=== PATIENT | male | born 1960 | race Caucasian/White ===

== ENCOUNTER 2017-10-02 21:03 | Inpatient (IN) | payer OTHER ==
[2017-10-02] MEDS: LABETALOL HCL 20MG INJ IV (22:46)
[2017-10-02] MEDS: OXYMETAZOLINE 0.05% 15 ML NAS SPRAY NASAL (22:51)
[2017-10-02] MEDS: SOD CHLORIDE 0.9% 500 ML IV (22:51)
[2017-10-02 23:05] LABS: ADD MAN DIFF? NO
[2017-10-02 23:09] LABS: BASOPHIL # 0.1 10^3/ul (0.0-0.1); BASOPHILS % 0.5 % (0.0-2.0); EOSINOPHILS # 0.4 10^3/ul (0.0-0.5); EOSINOPHILS % 2.9 % (0.0-7.0); HEMATOCRIT 48.4 % (42.0-52.0); HEMOGLOBIN 16.2 g/dl (14.0-18.0); LYMPHOCYTES # 3.7 10^3/ul (0.8-2.9); LYMPHOCYTES % 24.2 % (15.0-51.0); MEAN CORPUSCULAR HEMOGLOBIN 30.9 pg (29.0-33.0); MEAN CORPUSCULAR HGB CONC 33.5 g/dl (32.0-37.0); MEAN CORPUSCULAR VOLUME 92.4 fl (82.0-101.0); MEAN PLATELET VOLUME 9.3 fl (7.4-10.4); MONOCYTE # 1.1 10^3/ul (0.3-0.9); MONOCYTES % 7.2 % (0.0-11.0); NEUTROPHILS % 64.7 % (39.0-77.0); PLATELET COUNT 292 10^3/UL (140-415); RED BLOOD COUNT 5.24 10^6/ul (4.70-6.10); RED CELL DISTRIBUTION WIDTH 13.9 % (11.5-14.5)
[2017-10-02 23:09] LABS: WHITE BLOOD COUNT 15.4 10^3/ul (4.8-10.8)
[2017-10-02 23:29] LABS: INR 0.86; PROTIME 11.8 Sec (11.9-14.9); PT RATIO 0.9
[2017-10-02] MEDS: ONDANSETRON 4 MG INJ IV (23:29)
[2017-10-02 23:30] LABS: PARTIAL THROMBOPLASTIN TIME 31.2 Sec (25.0-35.0)
[2017-10-02 23:31] LABS: ANION GAP 17 (8-16); BLOOD UREA NITROGEN 24 mg/dl (7-20); CALCIUM 9.3 mg/dl (8.4-10.2); CARBON DIOXIDE 27 mmol/L (21-31); CHLORIDE 106 mmol/L (97-110); CREATININE 1.34 mg/dl (0.61-1.24); GLUCOSE 100 mg/dl (70-220); POTASSIUM 3.9 mmol/L (3.5-5.1); SODIUM 146 mmol/L (135-144)
[2017-10-02 23:42] LABS: B-TYPE NATRIURETIC PEPTIDE 725 PG/ML (0-125); TROPONIN-I 0.024 ng/ml (0.00-0.12)
[2017-10-03] MEDS ORDERED: ACETAMINOPHEN 325 MG TAB PO ×2 (00:30→01:30)
[2017-10-03] MEDS ORDERED: ONDANSETRON 4 MG INJ IV ×2 (00:30→01:30)
[2017-10-03] MEDS: SOD CHLORIDE 0.9% 1,000 ML IV (01:29)
[2017-10-03] MEDS ORDERED: NACL 0.9% 3 ML SYG IV (01:30)
[2017-10-03] MEDS ORDERED: DOCUSATE SODIUM 100 MG CAP PO (01:30)
[2017-10-03] MEDS ORDERED: BISACODYL (EC) 5 MG TAB PO (01:30)
[2017-10-03] MEDS: AMLODIPINE 5 MG TAB PO ×2 (02:41→08:38)
[2017-10-03 06:27] LABS: ADD MAN DIFF? NO
[2017-10-03 06:38] LABS: WHITE BLOOD COUNT 11.5 10^3/ul (4.8-10.8)
[2017-10-03 06:38] LABS: BASOPHIL # 0.1 10^3/ul (0.0-0.1); BASOPHILS % 0.6 % (0.0-2.0); EOSINOPHILS # 0.4 10^3/ul (0.0-0.5); EOSINOPHILS % 3.6 % (0.0-7.0); HEMATOCRIT 42.7 % (42.0-52.0); HEMOGLOBIN 14.5 g/dl (14.0-18.0); LYMPHOCYTES # 3.1 10^3/ul (0.8-2.9); LYMPHOCYTES % 26.9 % (15.0-51.0); MEAN CORPUSCULAR HEMOGLOBIN 31.5 pg (29.0-33.0); MEAN CORPUSCULAR VOLUME 92.8 fl (82.0-101.0); MEAN PLATELET VOLUME 9.4 fl (7.4-10.4); MONOCYTE # 0.9 10^3/ul (0.3-0.9); MONOCYTES % 8.1 % (0.0-11.0); NEUTROPHIL # 6.9 10^3/ul (1.6-7.5); NEUTROPHILS % 60.4 % (39.0-77.0); PLATELET COUNT 240 10^3/UL (140-415); RED CELL DISTRIBUTION WIDTH 14.2 % (11.5-14.5)
[2017-10-03 06:57] LABS: ALANINE AMINOTRANSFERASE 31 IU/L (13-69); ALBUMIN 3.4 g/dl (3.3-4.9); ALBUMIN/GLOBULIN RATIO 1.13; ALKALINE PHOSPHATASE 55 IU/L (42-121); ANION GAP 11 (8-16); ASPARTATE AMINO TRANSFERASE 30 IU/L (15-46); BILIRUBIN,INDIRECT 0.2 mg/dl (0-1.1); BILIRUBIN,TOTAL 0.2 mg/dl (0.2-1.3); BLOOD UREA NITROGEN 20 mg/dl (7-20); CALCIUM 8.7 mg/dl (8.4-10.2); CARBON DIOXIDE 27 mmol/L (21-31); CHLORIDE 109 mmol/L (97-110); CHOL/HDL RATIO 5.7 RATIO; CHOLESTEROL 220 mg/dl (100-200); CREATININE 1.08 mg/dl (0.61-1.24); GLUCOSE 102 mg/dl (70-220); HDL CHOLESTEROL 38 mg/dl (28-71); LDL CHOLESTEROL,CALCULATED 145 mg/dl; MAGNESIUM 1.9 mg/dl (1.7-2.5); POTASSIUM 3.9 mmol/L (3.5-5.1); SODIUM 143 mmol/L (135-144); TOTAL PROTEIN 6.4 g/dl (6.1-8.1); TRIGLYCERIDES 185 mg/dl (0-149)
[2017-10-03 07:00] LABS: CREATINE KINASE 116 IU/L (23-200)
[2017-10-03 07:04] LABS: CK INDEX 0.9; TROPONIN-I 0.023 ng/ml (0.00-0.12)
[2017-10-03 07:11] LABS: CK-MB 0.99 ng/ml (0.0-2.4)
[2017-10-03 07:55] LABS: HEMOGLOBIN A1C 5.6 % (0-5.9)
[2017-10-03] MEDS: ASPIRIN 81 MG TAB PO (08:38)
[2017-10-03] MEDS: LOSARTAN 50 MG TAB PO (08:38)
[2017-10-03 12:53] LABS: CREATINE KINASE 107 IU/L (23-200)
[2017-10-03 12:59] LABS: CK INDEX 0.8
[2017-10-03] MEDS ORDERED: hydrALAzine 20 MG INJ IV (13:00)
[2017-10-03 13:03] LABS: CK-MB 0.84 ng/ml (0.0-2.4); TROPONIN-I < 0.012 ng/ml (0.00-0.12)
[2017-10-03] MEDS: OXYMETAZOLINE 0.05% 15 ML NAS SPRAY NASAL (14:47)
[2017-10-03] MEDS: ATORVASTATIN 80 MG TAB PO (21:00)
[2017-10-04] MEDS: OXYMETAZOLINE 0.05% 15 ML NAS SPRAY NASAL (01:14)
[2017-10-04] MEDS: AMLODIPINE 5 MG TAB PO ×2 (02:42→09:36)
[2017-10-04] MEDS: LOSARTAN 50 MG TAB PO (09:36)
[2017-10-04] MEDS ORDERED: AMLODIPINE 10 MG TAB PO (21:00)
[2017-10-05 21:04] LABS: ALDOSTERONE 1 ng/dL
== END 2017-10-04 16:22 | disposition home or self-care (01) | DRG 151 ==
LOC: TEL 10-03 00:21 → FTE 21:03
PROC: 2Y41X5Z Packing of Nasal Region using Packing Material (ICD-10-PCS; principal; 2017-10-03)
DX: R04.0 Epistaxis (principal); N17.9 Acute kidney failure, unspecified; E87.0 Hyperosmolality and hypernatremia; I16.0 Hypertensive urgency; E03.9 Hypothyroidism, unspecified; Z86.73 Personal history of transient ischemic attack (TIA), and cerebral infarction without residual deficits; Z95.5 Presence of coronary angioplasty implant and graft; F17.210 Nicotine dependence, cigarettes, uncomplicated; E86.0 Dehydration
CPT/HCPCS: 36415; 70450; 71045; 80048; 80053; 80061; 82088; 82550; 82553; 83036; 83735; 83880; 84244; 84439; 84443; 84484; 85025; 85610; 85730; 93005; 93306; 96374; 96375; 99291-25

== ENCOUNTER 2018-10-05 12:13 | Inpatient (IN) | payer OTHER ==
[2018-10-05] MEDS: SOD CHLORIDE 0.9% 1,000 ML IV (13:33)
[2018-10-05 13:35] LABS: ADD MAN DIFF? NO
[2018-10-05 13:38] LABS: WHITE BLOOD COUNT 16.8 10^3/ul (4.8-10.8)
[2018-10-05 13:38] LABS: BASOPHIL # 0.1 10^3/ul (0.0-0.1); BASOPHILS % 0.4 % (0.0-2.0); EOSINOPHILS # 0.1 10^3/ul (0.0-0.5); EOSINOPHILS % 0.8 % (0.0-7.0); HEMATOCRIT 45.2 % (42.0-52.0); HEMOGLOBIN 15.2 g/dl (14.0-18.0); LYMPHOCYTES # 2.5 10^3/ul (0.8-2.9); LYMPHOCYTES % 14.6 % (15.0-51.0); MEAN CORPUSCULAR HEMOGLOBIN 30.2 pg (29.0-33.0); MEAN CORPUSCULAR HGB CONC 33.6 g/dl (32.0-37.0); MEAN CORPUSCULAR VOLUME 89.9 fl (82.0-101.0); MEAN PLATELET VOLUME 9.2 fl (7.4-10.4); MONOCYTE # 1.3 10^3/ul (0.3-0.9); MONOCYTES % 7.4 % (0.0-11.0); NEUTROPHIL # 12.8 10^3/ul (1.6-7.5); NEUTROPHILS % 76.1 % (39.0-77.0); PLATELET COUNT 341 10^3/UL (140-415); RED BLOOD COUNT 5.03 10^6/ul (4.70-6.10); RED CELL DISTRIBUTION WIDTH 12.9 % (11.5-14.5)
[2018-10-05 14:01] LABS: ALANINE AMINOTRANSFERASE 12 IU/L (13-69); ALBUMIN/GLOBULIN RATIO 0.95; ALKALINE PHOSPHATASE 79 IU/L (42-121); ANION GAP 10 (5-13); ASPARTATE AMINO TRANSFERASE 29 IU/L (15-46); BILIRUBIN,INDIRECT 0.6 mg/dl (0-1.1); BILIRUBIN,TOTAL 0.6 mg/dl (0.2-1.3); BLOOD UREA NITROGEN 12 mg/dl (7-20); CALCIUM 9.7 mg/dl (8.4-10.2); CARBON DIOXIDE 29 mmol/L (21-31); CHLORIDE 102 mmol/L (97-110); CREATININE 1.11 mg/dl (0.61-1.24); ETHANOL < 10.0 mg/dl (0-0); Estimated GFR > 60 mL/min (>60); GLUCOSE 119 mg/dl (70-220); POTASSIUM 3.5 mmol/L (3.5-5.1); SODIUM 141 mmol/L (135-144); TOTAL PROTEIN 8.2 g/dl (6.1-8.1)
[2018-10-05 14:03] LABS: CHOLESTEROL 197 mg/dl (100-200)
[2018-10-05 14:03] LABS: CREATINE KINASE 42 IU/L (23-200); HDL CHOLESTEROL 39 mg/dl (28-71); LDL CHOLESTEROL,CALCULATED 129 mg/dl; TRIGLYCERIDES 143 mg/dl (0-149)
[2018-10-05 14:06] LABS: INR 0.91; PROTIME 12.4 Sec (11.9-14.9)
[2018-10-05 14:07] LABS: PARTIAL THROMBOPLASTIN TIME 24.5 Sec (23.0-35.0)
[2018-10-05] MEDS: SOD CHLORIDE 0.9% 100 ML (14:15)
[2018-10-05 14:16] LABS: CK INDEX 0.5; CK-MB < 0.22 ng/ml (0.0-2.4); TROPONIN-I 0.022 ng/ml (0.000-0.120)
[2018-10-05] MEDS: IODIXANOL LOCM 100 ML BTL (14:16)
[2018-10-05] MEDS: SOD CHLORIDE 0.45% 1,000 ML IV ×2 (14:25)
[2018-10-05] MEDS ORDERED: NITROGLYCERIN (SL) 0.4 MG TAB SL (14:30)
[2018-10-05] MEDS ORDERED: HYDROCODONE/APAP (5/325) TAB PO (14:30)
[2018-10-05] MEDS ORDERED: ONDANSETRON 4 MG INJ IV (14:30)
[2018-10-05] MEDS ORDERED: NACL 0.9% 3 ML SYG IV (14:30)
[2018-10-05] MEDS ORDERED: MAGNESIUM HYDROXIDE 30ML CUP PO (14:30)
[2018-10-05] MEDS ORDERED: hydrALAzine 20 MG INJ IV (14:30)
[2018-10-05] MEDS ORDERED: DOCUSATE SODIUM 100 MG CAP PO (14:30)
[2018-10-05] MEDS ORDERED: ALBUTEROL/IPRATROPIUM (NEB) 3 ML AMP HHN (14:30)
[2018-10-05 14:41] LABS: HEMOGLOBIN A1C 5.5 % (0-5.9)
[2018-10-05 15:17] LABS: FREE T4 (FREE THYROXINE) 1.64 ng/dl (0.64-1.79)
[2018-10-05 15:57] LABS: ERYTHROCYTE SEDIMENTATION RATE 109 mm/Hr (0-20)
[2018-10-05] MEDS: ACETAMINOPHEN 325 MG TAB PO (16:33)
[2018-10-05] MEDS: LORAZEPAM 2 MG INJ IV ×3 (16:50→23:45)
[2018-10-05] MEDS: HALOPERIDOL 5 MG INJ IM (20:35)
[2018-10-05] MEDS: TICAGRELOR 90 MG TABLET PO (21:28)
[2018-10-05] MEDS: ATORVASTATIN 80 MG TAB PO (21:28)
[2018-10-05 22:28] LABS: LACTIC ACID 1.9 mmol/L (0.5-2.0)
[2018-10-05 22:28] LABS: PARTIAL THROMBOPLASTIN TIME 33.4 Sec (23.0-35.0)
[2018-10-05 22:37] LABS: INR 0.94; PROTIME 12.7 Sec (11.9-14.9)
[2018-10-05] MEDS: morphine 2 MG INJ IV (22:48)
[2018-10-06] MEDS: DIPHENHYDRAMINE 50 MG INJ IV ×2 (01:07→01:35)
[2018-10-06] MEDS: SOD CHLORIDE 0.45% 1,000 ML IV ×2 (01:54→18:25)
[2018-10-06] MEDS: morphine 2 MG INJ IV (02:56)
[2018-10-06 05:14] LABS: WHITE BLOOD COUNT 23.1 10^3/ul (4.8-10.8)
[2018-10-06 05:14] LABS: ABNORMAL IP MESSAGE 1; ADD MAN DIFF? NO; BASOPHIL # 0.1 10^3/ul (0.0-0.1); BASOPHILS % 0.3 % (0.0-2.0); HEMATOCRIT 43.5 % (42.0-52.0); HEMOGLOBIN 14.8 g/dl (14.0-18.0); LYMPHOCYTES % 12.8 % (15.0-51.0); MEAN CORPUSCULAR HEMOGLOBIN 29.8 pg (29.0-33.0); MEAN CORPUSCULAR VOLUME 87.5 fl (82.0-101.0); MEAN PLATELET VOLUME 9.3 fl (7.4-10.4); MONOCYTE # 1.7 10^3/ul (0.3-0.9); MONOCYTES % 7.3 % (0.0-11.0); NEUTROPHIL # 18.3 10^3/ul (1.6-7.5); NEUTROPHILS % 78.9 % (39.0-77.0); PLATELET COUNT 340 10^3/UL (140-415); POSITIVE DIFF @See below; RED BLOOD COUNT 4.97 10^6/ul (4.70-6.10)
[2018-10-06 05:34] LABS: HEMOGLOBIN A1C 5.6 % (0-5.9)
[2018-10-06 05:35] LABS: ANION GAP 11 (5-13); BLOOD UREA NITROGEN 13 mg/dl (7-20); CALCIUM 9.6 mg/dl (8.4-10.2); CARBON DIOXIDE 30 mmol/L (21-31); CHLORIDE 99 mmol/L (97-110); CREATININE 1.15 mg/dl (0.61-1.24); Estimated GFR > 60 mL/min (>60); GLUCOSE 137 mg/dl (70-220); MAGNESIUM 1.6 mg/dl (1.7-2.5); PHOSPHORUS 2.1 mg/dl (2.5-4.9); SODIUM 140 mmol/L (135-144)
[2018-10-06 05:42] LABS: POTASSIUM 2.9 mmol/L (3.5-5.1)
[2018-10-06 05:55] LABS: CHOLESTEROL 186 mg/dl (100-200)
[2018-10-06 05:55] LABS: CHOL/HDL RATIO 5.3 RATIO; HDL CHOLESTEROL 35 mg/dl (28-71); LDL CHOLESTEROL,CALCULATED 125 mg/dl; TRIGLYCERIDES 131 mg/dl (0-149)
[2018-10-06] MEDS: PANTOPRAZOLE (EC) 40 MG TAB PO (06:18)
[2018-10-06] MEDS: MAGNESIUM SULFATE 2 GM/50 ML 50 ML IVPB (06:19)
[2018-10-06] MEDS: POTASSIUM CHLORIDE 100 ML IVPB ×4 (08:30→17:13)
[2018-10-06] MEDS ORDERED: NICOTINE (7 MG/24 HR) PATCH TRANSDERM (09:00)
[2018-10-06] MEDS: ASPIRIN (EC) 325 MG TAB PO (09:19)
[2018-10-06] MEDS: LEVOTHYROXINE 150 MCG TAB PO (09:26)
[2018-10-06] MEDS: NICOTINE (14 MG/24 HR) PATCH TRANSDERM (09:27)
[2018-10-06] MEDS: TICAGRELOR 90 MG TABLET PO ×2 (09:27→21:17)
[2018-10-06 18:49] LABS: RAPID PLASMA REAGIN NONREACTIVE (NR)
[2018-10-06] MEDS: ATORVASTATIN 80 MG TAB PO (21:03)
[2018-10-07 06:03] LABS: ADD MAN DIFF? NO
[2018-10-07 06:08] LABS: BASOPHIL # 0.1 10^3/ul (0.0-0.1); BASOPHILS % 0.2 % (0.0-2.0); EOSINOPHILS # 0.2 10^3/ul (0.0-0.5); EOSINOPHILS % 0.9 % (0.0-7.0); HEMATOCRIT 45.6 % (42.0-52.0); HEMOGLOBIN 15.3 g/dl (14.0-18.0); LYMPHOCYTES # 2.8 10^3/ul (0.8-2.9); LYMPHOCYTES % 13.5 % (15.0-51.0); MEAN CORPUSCULAR HEMOGLOBIN 29.6 pg (29.0-33.0); MEAN CORPUSCULAR HGB CONC 33.6 g/dl (32.0-37.0); MEAN CORPUSCULAR VOLUME 88.2 fl (82.0-101.0); MEAN PLATELET VOLUME 9.4 fl (7.4-10.4); MONOCYTE # 1.3 10^3/ul (0.3-0.9); MONOCYTES % 6.3 % (0.0-11.0); NEUTROPHIL # 16.5 10^3/ul (1.6-7.5); NEUTROPHILS % 78.4 % (39.0-77.0); PLATELET COUNT 342 10^3/UL (140-415); RED BLOOD COUNT 5.17 10^6/ul (4.70-6.10); RED CELL DISTRIBUTION WIDTH 13.1 % (11.5-14.5)
[2018-10-07] MEDS: SOD CHLORIDE 0.45% 1,000 ML IV ×2 (06:22→07:00)
[2018-10-07] MEDS: HALOPERIDOL 5 MG INJ IM (06:26)
[2018-10-07] MEDS: PANTOPRAZOLE (EC) 40 MG TAB PO (06:32)
[2018-10-07] MEDS: LEVOTHYROXINE 150 MCG TAB PO (06:33)
[2018-10-07 06:39] LABS: ANION GAP 13 (5-13); BLOOD UREA NITROGEN 24 mg/dl (7-20); CALCIUM 9.8 mg/dl (8.4-10.2); CARBON DIOXIDE 24 mmol/L (21-31); CHLORIDE 104 mmol/L (97-110); CREATININE 1.46 mg/dl (0.61-1.24); Estimated GFR 50 mL/min (>60); GLUCOSE 105 mg/dl (70-220); POTASSIUM 3.5 mmol/L (3.5-5.1); SODIUM 141 mmol/L (135-144)
[2018-10-07] MEDS: ASPIRIN (EC) 325 MG TAB PO (09:00)
[2018-10-07] MEDS: LORAZEPAM 2 MG INJ IV (09:29)
[2018-10-07] MEDS: NICOTINE (14 MG/24 HR) PATCH TRANSDERM (10:32)
[2018-10-07] MEDS: TICAGRELOR 90 MG TABLET PO ×2 (10:41→20:33)
[2018-10-07] MEDS: SOD CHLORIDE 0.9% 1,000 ML IV ×2 (11:15→19:00)
[2018-10-07] MEDS: ATORVASTATIN 80 MG TAB PO (20:27)
== END 2018-10-07 22:32 | DRG 66 ==
LOC: E/R 12:13 → 6WM 10-07 15:20 → ICU 14:57
PROVIDERS: Hospitalist
DX: I63.512 Cerebral infarction due to unspecified occlusion or stenosis of left middle cerebral artery (principal); R47.01 Aphasia; I25.10 Atherosclerotic heart disease of native coronary artery without angina pectoris; E03.9 Hypothyroidism, unspecified; I10 Essential (primary) hypertension; I25.2 Old myocardial infarction; R29.704 NIHSS score 4; R47.81 Slurred speech; R26.89 Other abnormalities of gait and mobility; Z95.5 Presence of coronary angioplasty implant and graft
CPT/HCPCS: 36415; 70450; 70496; 70498; 70551; 71045; 80048; 80053; 80061; 80307; 82550; 82553; 83036; 83605; 83735; 84100; 84439; 84443; 84484; 85025; 85610; 85651; 85730; 86592; 92507; 92526; 92610; 93005; 93306; 93880; 97110; 97116; 97163; 97167; 97530; 97535; 99291-25

== ENCOUNTER 2018-10-07 22:46 | Inpatient (IN) | payer OTHER ==
[2018-10-07] MEDS ORDERED: LACTULOSE 30ML CUP PO (23:30)
[2018-10-07] MEDS ORDERED: BISACODYL 10 MG SUPP PR (23:30)
[2018-10-07] MEDS ORDERED: MAGNESIUM HYDROXIDE 30ML CUP PO ×2 (23:30→23:45)
[2018-10-07] MEDS ORDERED: DOCUSATE SODIUM 100 MG CAP PO (23:45)
[2018-10-07] MEDS ORDERED: NITROGLYCERIN (SL) 0.4 MG TAB SL (23:45)
[2018-10-07] MEDS ORDERED: hydrALAzine 20 MG INJ IV (23:45)
[2018-10-07] MEDS ORDERED: ONDANSETRON 4 MG INJ IV (23:45)
[2018-10-08] MEDS: ACETAMINOPHEN 325 MG TAB PO (00:34)
[2018-10-08 01:01] LABS: ADD UMIC YES; UR ASCORBIC ACID NEGATIVE (NEGATIVE); UR BILIRUBIN (Dip) NEGATIVE (NEGATIVE); UR BLOOD (Dip) 1+ mg/dL (NEGATIVE); UR CLARITY CLEAR (CLEAR); UR COLOR YELLOW (YELLOW); UR GLUCOSE (Dip) NEGATIVE (NEGATIVE); UR KETONES (Dip) NEGATIVE (NEGATIVE); UR LEUKOCYTE ESTERASE (Dip) NEGATIVE Leu/ul (NEGATIVE); UR NITRITE (Dip) NEGATIVE (NEGATIVE); UR RBC 6 /HPF (0-5); UR SPECIFIC GRAVITY (Dip) 1.016 (1.003-1.030); UR TOTAL PROTEIN (Dip) NEGATIVE (NEGATIVE); UR UROBILINOGEN (Dip) 1+ mg/dL (NEGATIVE); UR WBC 2 /HPF (0-5)
[2018-10-08] MEDS: ALBUTEROL/IPRATROPIUM (NEB) 3 ML AMP HHN ×6 (01:03→20:16)
[2018-10-08 01:33] LABS: ADD MAN DIFF? NO
[2018-10-08 01:35] LABS: BASOPHILS % 0.3 % (0.0-2.0); EOSINOPHILS # 0.3 10^3/ul (0.0-0.5); EOSINOPHILS % 2.2 % (0.0-7.0); HEMATOCRIT 40.7 % (42.0-52.0); HEMOGLOBIN 13.5 g/dl (14.0-18.0); LYMPHOCYTES # 2.5 10^3/ul (0.8-2.9); MEAN CORPUSCULAR HEMOGLOBIN 29.4 pg (29.0-33.0); MEAN CORPUSCULAR HGB CONC 33.2 g/dl (32.0-37.0); MEAN CORPUSCULAR VOLUME 88.7 fl (82.0-101.0); MEAN PLATELET VOLUME 9.2 fl (7.4-10.4); MONOCYTE # 0.9 10^3/ul (0.3-0.9); MONOCYTES % 6.3 % (0.0-11.0); NEUTROPHIL # 10.2 10^3/ul (1.6-7.5); NEUTROPHILS % 72.6 % (39.0-77.0); PLATELET COUNT 326 10^3/UL (140-415); RED BLOOD COUNT 4.59 10^6/ul (4.70-6.10); RED CELL DISTRIBUTION WIDTH 13.2 % (11.5-14.5)
[2018-10-08 01:54] LABS: ALANINE AMINOTRANSFERASE 42 IU/L (13-69); ALBUMIN 3.4 g/dl (3.3-4.9); ALBUMIN/GLOBULIN RATIO 0.89; ALKALINE PHOSPHATASE 69 IU/L (42-121); ANION GAP 9 (5-13); ASPARTATE AMINO TRANSFERASE 64 IU/L (15-46); BILIRUBIN,INDIRECT 0.5 mg/dl (0-1.1); BILIRUBIN,TOTAL 0.5 mg/dl (0.2-1.3); BLOOD UREA NITROGEN 22 mg/dl (7-20); CALCIUM 9.1 mg/dl (8.4-10.2); CARBON DIOXIDE 25 mmol/L (21-31); CHLORIDE 106 mmol/L (97-110); CREATININE 1.32 mg/dl (0.61-1.24); Estimated GFR 56 mL/min (>60); GLUCOSE 109 mg/dl (70-220); POTASSIUM 3.4 mmol/L (3.5-5.1); SODIUM 140 mmol/L (135-144); TOTAL PROTEIN 7.2 g/dl (6.1-8.1)
[2018-10-08] MEDS: PIPER-TAZO 3.375 GM IV (PMX) 100 ML IVPB ×4 (01:56→17:32)
[2018-10-08] MEDS: PANTOPRAZOLE (EC) 40 MG TAB PO (06:30)
[2018-10-08] MEDS: LEVOTHYROXINE 150 MCG TAB PO (06:30)
[2018-10-08] MEDS: POTASSIUM CHLORIDE (SR) 20 MEQ TAB PO (09:09)
[2018-10-08] MEDS: DOCUSATE SODIUM 100 MG CAP PO ×2 (09:09→20:55)
[2018-10-08] MEDS: ASPIRIN (EC) 81 MG TAB PO (09:09)
[2018-10-08] MEDS: TICAGRELOR 90 MG TABLET PO ×2 (09:10→20:58)
[2018-10-08] MEDS: NICOTINE (14 MG/24 HR) PATCH TRANSDERM (09:11)
[2018-10-08] MEDS: morphine 2 MG INJ IV ×2 (10:53→18:13)
[2018-10-08] MEDS: ATORVASTATIN 80 MG TAB PO (20:55)
[2018-10-08] MEDS: SENNA TAB PO (20:55)
[2018-10-09] MEDS: PIPER-TAZO 3.375 GM IV (PMX) 100 ML IVPB ×5 (00:38→18:06)
[2018-10-09] MEDS: ALBUTEROL/IPRATROPIUM (NEB) 3 ML AMP HHN ×7 (01:00→20:58)
[2018-10-09] MEDS: ACETAMINOPHEN 325 MG TAB PO ×2 (01:12→21:24)
[2018-10-09] MEDS: LORAZEPAM 2 MG INJ IV ×2 (01:13→21:24)
[2018-10-09] MEDS: LEVOTHYROXINE 150 MCG TAB PO (06:15)
[2018-10-09] MEDS: PANTOPRAZOLE (EC) 40 MG TAB PO (06:15)
[2018-10-09] MEDS: ASPIRIN (EC) 81 MG TAB PO (09:24)
[2018-10-09] MEDS: DOCUSATE SODIUM 100 MG CAP PO ×2 (09:24→21:23)
[2018-10-09] MEDS: TICAGRELOR 90 MG TABLET PO ×2 (09:24→21:28)
[2018-10-09] MEDS: NICOTINE (14 MG/24 HR) PATCH TRANSDERM (09:25)
[2018-10-09] MEDS: SENNA TAB PO (21:23)
[2018-10-09] MEDS: ATORVASTATIN 80 MG TAB PO (21:23)
[2018-10-10] MEDS: PIPER-TAZO 3.375 GM IV (PMX) 100 ML IVPB ×3 (00:53→12:04)
[2018-10-10] MEDS: ALBUTEROL/IPRATROPIUM (NEB) 3 ML AMP HHN ×7 (01:00→20:15)
[2018-10-10] MEDS: PANTOPRAZOLE (EC) 40 MG TAB PO (06:02)
[2018-10-10] MEDS: LEVOTHYROXINE 150 MCG TAB PO (06:02)
[2018-10-10] MEDS: ASPIRIN (EC) 81 MG TAB PO (09:00)
[2018-10-10] MEDS: NICOTINE (14 MG/24 HR) PATCH TRANSDERM (09:01)
[2018-10-10] MEDS: DOCUSATE SODIUM 100 MG CAP PO ×2 (09:01→21:01)
[2018-10-10] MEDS: TICAGRELOR 90 MG TABLET PO ×2 (09:09→21:04)
[2018-10-10] MEDS: ATORVASTATIN 80 MG TAB PO (21:01)
[2018-10-10] MEDS: SENNA TAB PO (21:04)
[2018-10-10] MEDS: AMOXICILLIN/CLAV 875 MG TAB PO (21:04)
[2018-10-10] MEDS: LORAZEPAM 2 MG INJ IV (22:20)
[2018-10-11] MEDS: ALBUTEROL/IPRATROPIUM (NEB) 3 ML AMP HHN ×6 (01:00→21:00)
[2018-10-11] MEDS: LEVOTHYROXINE 150 MCG TAB PO (06:27)
[2018-10-11] MEDS: PANTOPRAZOLE (EC) 40 MG TAB PO (06:27)
[2018-10-11 07:11] LABS: ADD MAN DIFF? NO
[2018-10-11 07:17] LABS: BASOPHIL # 0.1 10^3/ul (0.0-0.1); BASOPHILS % 0.5 % (0.0-2.0); EOSINOPHILS # 0.3 10^3/ul (0.0-0.5); EOSINOPHILS % 2.6 % (0.0-7.0); HEMATOCRIT 42.8 % (42.0-52.0); HEMOGLOBIN 14.4 g/dl (14.0-18.0); LYMPHOCYTES # 2.5 10^3/ul (0.8-2.9); LYMPHOCYTES % 20.9 % (15.0-51.0); MEAN CORPUSCULAR HEMOGLOBIN 29.9 pg (29.0-33.0); MEAN CORPUSCULAR HGB CONC 33.6 g/dl (32.0-37.0); MEAN PLATELET VOLUME 9.5 fl (7.4-10.4); MONOCYTE # 0.9 10^3/ul (0.3-0.9); NEUTROPHIL # 8.3 10^3/ul (1.6-7.5); NEUTROPHILS % 68.4 % (39.0-77.0); PLATELET COUNT 357 10^3/UL (140-415); RED BLOOD COUNT 4.81 10^6/ul (4.70-6.10); RED CELL DISTRIBUTION WIDTH 13.1 % (11.5-14.5)
[2018-10-11 07:17] LABS: WHITE BLOOD COUNT 12.1 10^3/ul (4.8-10.8)
[2018-10-11 07:57] LABS: ANION GAP 13 (5-13); BLOOD UREA NITROGEN 12 mg/dl (7-20); CALCIUM 9.5 mg/dl (8.4-10.2); CARBON DIOXIDE 24 mmol/L (21-31); CHLORIDE 105 mmol/L (97-110); CREATININE 1.21 mg/dl (0.61-1.24); Estimated GFR > 60 mL/min (>60); GLUCOSE 102 mg/dl (70-220); MAGNESIUM 2.1 mg/dl (1.7-2.5); POTASSIUM 3.7 mmol/L (3.5-5.1); SODIUM 142 mmol/L (135-144)
[2018-10-11] MEDS: DOCUSATE SODIUM 100 MG CAP PO ×2 (08:26→20:31)
[2018-10-11] MEDS: ASPIRIN (EC) 81 MG TAB PO (08:26)
[2018-10-11] MEDS: AMOXICILLIN/CLAV 875 MG TAB PO ×2 (08:26→20:31)
[2018-10-11] MEDS: NICOTINE (14 MG/24 HR) PATCH TRANSDERM (08:27)
[2018-10-11] MEDS: TICAGRELOR 90 MG TABLET PO ×2 (08:27→20:31)
[2018-10-11] MEDS: morphine 2 MG INJ IV (12:19)
[2018-10-11] MEDS: ATORVASTATIN 80 MG TAB PO (20:28)
[2018-10-11] MEDS: LORAZEPAM 2 MG INJ IV (20:31)
[2018-10-11] MEDS: SENNA TAB PO (20:31)
[2018-10-12] MEDS: ALBUTEROL/IPRATROPIUM (NEB) 3 ML AMP HHN ×6 (01:00→21:00)
[2018-10-12] MEDS: PANTOPRAZOLE (EC) 40 MG TAB PO (06:27)
[2018-10-12] MEDS: LEVOTHYROXINE 150 MCG TAB PO (06:27)
[2018-10-12] MEDS: ASPIRIN (EC) 81 MG TAB PO (08:19)
[2018-10-12] MEDS: AMOXICILLIN/CLAV 875 MG TAB PO ×2 (08:19→20:48)
[2018-10-12] MEDS: DOCUSATE SODIUM 100 MG CAP PO ×2 (08:20→20:48)
[2018-10-12] MEDS: TICAGRELOR 90 MG TABLET PO ×2 (08:20→20:50)
[2018-10-12] MEDS: NICOTINE (14 MG/24 HR) PATCH TRANSDERM (08:25)
[2018-10-12] MEDS: LORAZEPAM 2 MG INJ IV ×2 (14:07→21:32)
[2018-10-12] MEDS: HYDROCODONE/APAP (5/325) TAB PO (18:32)
[2018-10-12] MEDS: SENNA TAB PO (20:48)
[2018-10-12] MEDS: ATORVASTATIN 80 MG TAB PO (20:50)
[2018-10-13] MEDS: ALBUTEROL/IPRATROPIUM (NEB) 3 ML AMP HHN ×6 (01:00→21:00)
[2018-10-13] MEDS: LEVOTHYROXINE 150 MCG TAB PO (06:34)
[2018-10-13] MEDS: PANTOPRAZOLE (EC) 40 MG TAB PO (06:34)
[2018-10-13] MEDS: AMOXICILLIN/CLAV 875 MG TAB PO ×2 (08:34→21:54)
[2018-10-13] MEDS: ASPIRIN (EC) 81 MG TAB PO (08:34)
[2018-10-13] MEDS: DOCUSATE SODIUM 100 MG CAP PO ×2 (08:34→21:54)
[2018-10-13] MEDS: NICOTINE (14 MG/24 HR) PATCH TRANSDERM (08:35)
[2018-10-13] MEDS: TICAGRELOR 90 MG TABLET PO ×2 (08:35→21:55)
[2018-10-13] MEDS ORDERED: LORAZEPAM 1 MG TAB PO (12:00)
[2018-10-13] MEDS: LORAZEPAM 0.5 MG TAB PO (13:34)
[2018-10-13] MEDS: ATORVASTATIN 80 MG TAB PO (21:54)
[2018-10-13] MEDS: SENNA TAB PO (21:54)
[2018-10-13] MEDS: LORAZEPAM 1 MG TAB PO (21:56)
[2018-10-14] MEDS: ALBUTEROL/IPRATROPIUM (NEB) 3 ML AMP HHN ×3 (01:00→09:00)
[2018-10-14] MEDS: LORAZEPAM 0.5 MG TAB PO ×2 (04:58→11:30)
[2018-10-14] MEDS: PANTOPRAZOLE (EC) 40 MG TAB PO (06:23)
[2018-10-14] MEDS: LEVOTHYROXINE 150 MCG TAB PO (06:23)
[2018-10-14] MEDS: AMOXICILLIN/CLAV 875 MG TAB PO (08:42)
[2018-10-14] MEDS: HYDROCODONE/APAP (5/325) TAB PO (08:43)
[2018-10-14] MEDS: DOCUSATE SODIUM 100 MG CAP PO (08:43)
[2018-10-14] MEDS: NICOTINE (14 MG/24 HR) PATCH TRANSDERM (08:43)
[2018-10-14] MEDS: ASPIRIN (EC) 81 MG TAB PO (08:44)
[2018-10-14] MEDS: TICAGRELOR 90 MG TABLET PO (08:45)
== END 2018-10-14 15:00 | disposition home health service (06) | DRG 57 ==
LOC: VRC 22:46
PROC: F07Z5FZ Bed Mobility Treatment using Assistive, Adaptive, Supportive or Protective Equipment (ICD-10-PCS; principal; 2018-10-08)
PROC: F07Z8FZ Transfer Training Treatment using Assistive, Adaptive, Supportive or Protective Equipment (ICD-10-PCS; 2018-10-08)
PROC: F07Z9FZ Gait Training/Functional Ambulation Treatment using Assistive, Adaptive, Supportive or Protective Equipment (ICD-10-PCS; 2018-10-08)
PROC: F08Z0FZ Bathing/Showering Techniques Treatment using Assistive, Adaptive, Supportive or Protective Equipment (ICD-10-PCS; 2018-10-08)
PROC: F08Z2FZ Grooming/Personal Hygiene Treatment using Assistive, Adaptive, Supportive or Protective Equipment (ICD-10-PCS; 2018-10-08)
PROC: F08Z1FZ Dressing Techniques Treatment using Assistive, Adaptive, Supportive or Protective Equipment (ICD-10-PCS; 2018-10-08)
DX: I69.320 Aphasia following cerebral infarction (principal); I69.351 Hemiplegia and hemiparesis following cerebral infarction affecting right dominant side; N39.0 Urinary tract infection, site not specified; N17.9 Acute kidney failure, unspecified; I10 Essential (primary) hypertension; E03.9 Hypothyroidism, unspecified; I69.322 Dysarthria following cerebral infarction; I25.10 Atherosclerotic heart disease of native coronary artery without angina pectoris; F17.210 Nicotine dependence, cigarettes, uncomplicated; B96.20 Unspecified Escherichia coli [E. coli] as the cause of diseases classified elsewhere; Z79.82 Long term (current) use of aspirin; Z95.5 Presence of coronary angioplasty implant and graft; Z91.14 Patient's other noncompliance with medication regimen
CPT/HCPCS: 71045; 80048; 80053; 81001; 83735; 85025; 87070; 87081; 87086; 92507; 92523; 92610; 94640; 94664; 97110; 97112; 97116; 97163; 97167; 97530; 97535